=== PATIENT | female | born 1955 | race Caucasian/White ===

== ENCOUNTER 2019-02-24 11:32 | Emergency (ER) | payer OTHER, MEDICAID ==
[~2019-02-24] VITALS: Ht 160 cm; Wt 77.1 kg
[2019-02-24 13:23] LABS: Basophils # (auto) 0.1 uL; Basophils % (auto) 0.7 % (0.0-2.0); Eosinophils # (auto) 0.1 uL; Eosinophils % (auto) 1.2 % (0.0-7.0); Hematocrit 40.5 % (36.0-46.0); Hemoglobin 13.9 g/dL (12.2-16.2); Lymphocytes # (auto) 2.2 uL; Lymphocytes % (auto) 22.9 % (10.0-50.0); Mean Corpuscular Hemoglobin 32.9 pg (28.0-32.0); Mean Corpuscular Hgb Conc. 34.3 g/dL (32.0-36.0); Mean Corpuscular Volume 95.8 fL (80.0-100.0); Monocytes # (auto) 0.6 uL; Monocytes % (auto) 6.7 % (0.0-12.0); Neutrophils # (auto) 6.5 uL; Neutrophils % (auto) 68.5 % (37.0-80.0); Nucleated Red Blood Cells % 0.2 %; Platelet Count (auto) 254 10^3/uL (140-450); Red Blood Cells 4.23 10^6/uL (4.0-5.20); Red Cell Distribution Width 13.6 % (11.8-14.3); White Blood Cell 9.6 10^3/uL (4.4-10.8)
[2019-02-24 13:42] LABS: Anion Gap 6 (5-15); Blood Alcohol < 3.0 mg/dL (0-5); Blood Urea Nitrogen 13 mg/dL (7-18); Calcium 9.2 mg/dL (8.5-10.1); Carbon Dioxide 27 mmol/L (21-32); Chloride 110 mmol/L (98-107); Glucose 95 mg/dL (74-106); Potassium 3.9 mmol/L (3.5-5.1); Sodium 143 mmol/L (136-145)
[2019-02-24 13:44] LABS: BUN/Creatinine Ratio 24.1; GFR African American 146 mL/min; GFR Non-African American 120 mL/min
[2019-02-24 13:54] LABS: Alcohol, Urine < 3.0 mg/dL (0-5); Amphetamine Screen, Urine NEGATIVE (NEGATIVE); Barbiturate Scree,Urine NEGATIVE (NEGATIVE); Benzodiazephine Screen, Urine NEGATIVE (NEGATIVE); Cannabinoid Screen, Urine NEGATIVE (NEGATIVE); Cocaine Screen, Urine NEGATIVE (NEGATIVE); Opiate Scree,Urine NEGATIVE (NEGATIVE); Phencyclidine Screen, Urine NEGATIVE (NEGATIVE)
[2019-02-24] MEDS ORDERED: ENAL2.5T (17:37)
[2019-02-24] MEDS ORDERED: TOLTERODINE (17:37)
[2019-02-24] MEDS ORDERED: ATOR20TA50 (17:37)
[2019-02-24] MEDS ORDERED: METF-370 (17:37)
[2019-02-24] MEDS ORDERED: LORazepam 0.5 MG TAB PO ONE (21:15)
[2019-02-24] MEDS ORDERED: SUCRALFATE 1 GM TAB PO ONE (22:30)
[2019-02-24] MEDS ORDERED: ATORVASTATIN 20 MG TAB PO ONE (22:30)
[2019-02-24] MEDS ORDERED: ENALAPRIL MALEATE 2.5 MG TAB PO ONE (22:30)
[2019-02-24] MEDS ORDERED: TOLTERODINE TARTRATE 1 MG TAB PO ONE (22:30)
[2019-02-24] MEDS ORDERED: metFORMIN HYDROCHLORIDE 500 MG TAB PO ONE (22:30)
[2019-02-25] MEDS ORDERED: IBUPROFEN 600 MG TAB PO ONE (06:15)
[2019-02-25] MEDS ORDERED: LORazepam 0.5 MG TAB PO PRN (07:45)
[2019-02-25] MEDS ORDERED: ENALAPRIL MALEATE 2.5 MG TAB PO SCH (10:00)
[2019-02-25] MEDS ORDERED: ATORVASTATIN 20 MG TAB PO SCH (10:00)
[2019-02-25] MEDS ORDERED: metFORMIN HYDROCHLORIDE 500 MG TAB PO SCH (10:00)
[2019-02-25] MEDS ORDERED: TOLTERODINE TARTRATE 1 MG TAB PO SCH (10:00)
[2019-02-25] MEDS ORDERED: SUCRALFATE 1 GM TAB PO SCH (11:30)
[2019-02-25 12:08] VITALS: BP 112/64
== END 2019-02-25 12:40 | disposition short-term general hospital (02) ==
LOC: ER 11:32
DX: R45.850 Homicidal ideations (principal); R06.02 Shortness of breath; J45.909 Unspecified asthma, uncomplicated; E11.9 Type 2 diabetes mellitus without complications; E78.5 Hyperlipidemia, unspecified; F12.10 Cannabis abuse, uncomplicated; I10 Essential (primary) hypertension; Z90.49 Acquired absence of other specified parts of digestive tract; Z90.710 Acquired absence of both cervix and uterus
CPT/HCPCS: 36415; 71046; 80048; 80307; 80320; 82962; 85025; 93005